=== PATIENT | male | born 1925 ===

== ENCOUNTER 2016-07-15 14:58 | Emergency (ER) | payer MEDICARE ==
[2016-07-15 17:33] VITALS: BP 89/47
--- NOTE | 2016-07-15 17:33 | UC ---
Respiratory Complaint HPI - HPI Summary HPI Summary: 1. Cough for 6 days and a rattle in chest with some fatigue. Denies chest pain or palpitations 2. Sores on buttocks and left ankle for one month need checking and slowly worsening. 3. Right lateral abdominal dull sensation "uneasiness" off/on for 6+ months. Sensation is not present when coughing. Pt has initial appt with Julio Cesar Rosario 07/23/16 [ End ] - History of Current Complaint Chief Complaint: UCRespiratory Stated Complaint: COUGH,SORES Time Seen by Provider: 07/15/16 16:34 Hx Obtained From: Patient, Family/Case Management Assistant - daughter Onset/Duration: Gradual Onset Timing: Constant Severity Initially: Mild Severity Currently: Moderate Character: Cough: Nonproductive Aggravating Factors: Nothing Alleviating Factors: Nothing Associated Signs And Symptoms: Positive: URI - Risk Factors Pulmonary Embolism Risk Factors: Recent Bedrest Cardiac Risk Factors: Diabetes, Prior NC - Allergies/Home Medications Allergies/Adverse Reactions: Allergies Allergy/AdvReac Type Severity Reaction Status Date / Time anesthesia Allergy Difficulty Uncoded 07/15/16 16:53 Breathing Home Medications: Home Medications Divalproex Sodium [Depakote] 0 mg PO DAILY 07/15/16 [History Confirmed 07/15/16] Furosemide TAB* [Lasix TAB*] 1 tab PO DAILY 07/15/16 [History Confirmed 07/15/16 ] Warfarin TAB(*) [Coumadin TAB(*)] 1 tab PO DAILY 07/15/16 [History Confirmed 11/24] PMH/Surg Hx/FS Hx/Imm Hx Previously Healthy: No Endocrine History Of: Reports: Diabetes Cardiovascular History Of: Reports: Cardiac Disorders - CABG, Atrial Fibrillation GI/ History Of: Denies: Gastroesophageal Reflux - Surgical History Surgical History: Yes Surgery Procedure, Year, and Place: CABG, bilateral knees, gallbladder, appy, cataracts - Social History Occupation: Retired - [employer] Alcohol Use: None Substance Use Type: None Smoking Status (MU): Never Smoked Tobacco Review of Systems Constitutional: Negative, Fatigue Skin: Negative Eyes: Negative ENT: Negative Respiratory: Cough Cardiovascular: Negative Gastrointestinal: Abdominal Pain Genitourinary: Negative Motor: Negative Neurovascular: Negative Musculoskeletal: Negative, Other: - generalized weakness Neurological: Negative Psychological: Negative All Other Systems Reviewed And Are Negative: Yes Physical Exam Triage Information Reviewed: Yes Appearance: Well-Appearing, Other: - frail Vital Signs: Initial Vital Signs Temp 97.9 F 07/15/16 16:27 Pulse 78 07/15/16 16:27 Resp 32 07/15/16 16:27 BP 89/47 07/15/16 16:27 Pulse Ox 93 07/15/16 16:27 Vital Signs Reviewed: Yes Eye Exam: Normal ENT Exam: Normal Dental Exam: Normal Neck exam: Normal Neck: Positive: 1 Respiratory Exam: Normal Respiratory: Positive: Chest non-tender, Decreased breath sounds - LLL Cardiovascular: Positive: Pulses Normal, Brisk Capillary Refill, Other: - irreg irreg Abdominal Exam: Normal Abdomen Description: Positive: Nontender, No Organomegaly, Soft Musculoskeletal Exam: Normal Neurological Exam: Normal Psychological Exam: Normal Skin Exam: Normal Skin: Positive: breakdown - decub area without break in skin but purple / darkening of skin as well as left medial distal leg with redness UC Diagnostic Evaluation - Laboratory O2 Sat by Pulse Oximetry: 93 Respiratory Course/Dx - Course Course Of Treatment: Complex patient. Will need higher level of care. Daughter aware and will take father directly to [facility]. She declined oxygen and declined rechecking the o2 after oxygen removed as she does not want ambulance. SHe is aware of risks of not taking ambulance. - Differential Dx/Diagnosis Differential Diagnosis/HQI/PQRI: Bronchitis, Pulmonary Edema, Lower Resp Infection, Pneumothorax, Pulmonary Embolism Provider Diagnoses: Bronchitis. Decubitus skin breakdown. Debility. - Physician Notification/Consults Discussed Patient Care With: Spoke with Payton Lawton at [facility] at 1730 Discharge - Discharge Plan Condition: Good Disposition: AGAINST MEDICAL ADVICE
== END 2016-07-15 17:34 | disposition left against medical advice (07) ==
LOC: UCCORT 14:58
DX: J40 Bronchitis, not specified as acute or chronic (principal); L89.329 Pressure ulcer of left buttock, unspecified stage; L89.319 Pressure ulcer of right buttock, unspecified stage; L89.529 Pressure ulcer of left ankle, unspecified stage; E11.9 Type 2 diabetes mellitus without complications; I48.91 Unspecified atrial fibrillation; Z79.01 Long term (current) use of anticoagulants; Z95.1 Presence of aortocoronary bypass graft; Z90.49 Acquired absence of other specified parts of digestive tract; Z98.49 Cataract extraction status, unspecified eye; Z88.4 Allergy status to anesthetic agent
CPT/HCPCS: 99203; G0463